=== PATIENT | female | born 1970 | race Caucasian/White ===

== ENCOUNTER 2021-07-10 01:51 | Emergency (ER) | payer BC ==
[~2021-07-10] VITALS: Ht 162.6 cm; Wt 88.5 kg
[2021-07-10 06:20] LABS: INFLUENZA A ANTIGEN Negative (Negative); INFLUENZA B ANTIGEN Negative (Negative)
[2021-07-10 06:25] LABS: HEMATOCRIT 35.2 % (37.0-47.0); HEMOGLOBIN 10.9 gm/dL (12.0-15.0); MCH 21.6 pg (26.0-34.0); MCHC 31.1 g/dL (28.0-37.0); MCV 69.6 fL (80.0-100.0); MPV 7.7 fl. (7.2-11.1); RBC 5.06 mil/uL (4.20-5.00); RDW-CV 18.5 % (10.5-14.5); WBC 8.5 thou/uL (4.0-11.0)
[2021-07-10 07:32] VITALS: BP 151/76
[2021-07-10 07:45] LABS: CALCIUM 8.3 mg/dL (8.5-10.1); CREATININE 0.9 mg/dL (0.6-1.3); POTASSIUM 3.7 mmol/L (3.5-5.1)
== END 2021-07-10 07:33 | disposition home or self-care (01) ==
LOC: M.ERS 01:51
PROVIDERS: Personal Emergency Response Attendant
DX: B34.9 Viral infection, unspecified (principal); J02.9 Acute pharyngitis, unspecified; E86.0 Dehydration; Z88.0 Allergy status to penicillin

== ENCOUNTER → 2021-08-18 | Outpatient (CLI) | payer BC | LOC: M.ULTRA 13:00 | PROVIDERS: ATTEND Nurse Practitioner Family | DX: N60.01 Solitary cyst of right breast (principal); Z98.890 Other specified postprocedural states; Z79.899 Other long term (current) drug therapy; Z88.0 Allergy status to penicillin ==